=== PATIENT | female | born 1965 | race Caucasian/White ===

== ENCOUNTER 2017-11-16 14:27 | Outpatient (CLI) | payer BC | END 2017-11-16 14:28 | disposition home or self-care (01) | LOC: BICMAMMO 14:27 | PROVIDERS: ATTEND Internal Medicine | DX: Z12.31 Encounter for screening mammogram for malignant neoplasm of breast (principal); N63.20 Unspecified lump in the left breast, unspecified quadrant; Z80.3 Family history of malignant neoplasm of breast | CPT/HCPCS: 77063; 77067 ==

== ENCOUNTER 2017-11-17 13:14 | Outpatient (CLI) | payer BC | END 2017-11-17 13:15 | disposition home or self-care (01) | LOC: BICMAMMO 13:14 | PROVIDERS: ATTEND Internal Medicine | DX: N63.20 Unspecified lump in the left breast, unspecified quadrant (principal); N60.02 Solitary cyst of left breast | CPT/HCPCS: G0279 ==

== ENCOUNTER 2018-05-17 15:00 | Outpatient (CLI) | payer BC ==
[2018-05-17 15:37] LABS: Hemoglobin 13.8 g/dL (12.0-16.0); Mean Corpuscular HGB CONC 34.8 g/dL (32.0-36.0); Mean Corpuscular Hemoglobin 31.5 pg (27.0-31.0); Mean Corpuscular Volume 90.5 fL (78.0-98.0); Mean Platelet Volume 6.7 fL (7.4-10.4); Platelet Count 365 thou/uL (130-400); RBC Distribution Width 11.1 % (11.5-14.5); Red Blood Cell (RBC) Count 4.39 mill/uL (4.20-5.40)
== END 2018-05-17 15:01 | disposition home or self-care (01) ==
LOC: LABBT 15:00
PROVIDERS: ATTEND Student in an Organized Health Care Education/Training Program
DX: Z01.812 Encounter for preprocedural laboratory examination (principal); N95.0 Postmenopausal bleeding
CPT/HCPCS: 85027; 86850; 86900; 86901

== ENCOUNTER 2018-05-20 10:19 | Day surgery (SDC) | payer BC ==
[2018-05-11 09:19] VITALS: BMI 26.6
[2018-05-20] MEDS ORDERED: Midazolam HCl 2 mg/2 ml Vial ONE (11:11)
[2018-05-20] MEDS ORDERED: Fentanyl 100 MCG/2 ML VIAL ONE (11:16)
--- NOTE | 2018-05-21 12:26 | OP ---
DATE OF OPERATION: 05/20/2018 PREOPERATIVE DIAGNOSIS: Postmenopausal vaginal bleeding. POSTOPERATIVE DIAGNOSIS: Postmenopausal vaginal bleeding. PROCEDURE: Hysteroscopy, dilation and curettage. ANESTHESIA: General LMA. ATTENDING SURGEON: Keli Schwartz M.D. ESTIMATED BLOOD LOSS: 10 mL. IVF: 400 mL crystalloid. URINE OUTPUT: 150 mL of clear urine at the beginning. DRAINS: None. COMPLICATIONS: None. PATHOLOGY: Endometrial curettings. FINDINGS: A small mobile uterus, normal appearing cervix. Endocervical canal was normal appearing. The endometrium and uterine cavity were distorted secondary to the patient's previous ablation. The re was no visible endometrium. The tubal ostia were not visualized. The uterus did sound to 7 cm an d felt to be visualized and what remained that was not scarred down. There were no visible abnormal appearing masses or lesions on the endometrium and there was scant tissue that returned on curetting of the endometrium and endocervix. This was sent for final pathology. Fluid deficit for the case wa s 200 mL and normal saline was used as distention media. OPERATIVE TECHNIQUE: The patient was taken to the operating room where general anesthesia was obtain ed of difficulty. The patient was prepped and draped in a sterile fashion in the dorsal lithotomy po sition. A red rubber catheter was performed during the vaginal prep. A weighted speculum was placed in the vagina. The anterior lip of the cervix was grasped with a single tooth tenaculum. There was difficulty entering into the cervix with the smallest Jesus dilator. A hemostat was taken to the cer vix up to the internal os and spread as a means to break up adhesions at the level of the internal ce rvical os. The dilator was able to be passed at that time and the cervix was progressively dilated w ith Jesus dilators. There was some difficulty in locating the canal as the canal was irregular second pato to scarring from the patient's prior ablation. The uterus then sounded to 7 cm and the 5 mm hyst eroscope was assembled and inserted into the uterus and the fundus where the above findings were note d and a thorough inspection was performed of the uterine cavity or what remained of it and it did not feel like this was a false track or that this was in fact the patient's uterus and the appearance co nsistent with her prior ablation. Photodocumentation was performed and a sharp curettage was taken t o the uterus and all the murguia noted a gritty texture. There was a small amount of tissue that retur chastity and this was sent for final pathology. Hysteroscope was then reintroduced to again examine the u terus to ensure the curet was passed into the cavity and there was some blood in the cavity consisten t with curetting for adequate tissue sample. However, the patient is aware that following an ablatio n the endometrium is scarred and sampling of the uterine cavity is not necessarily reliable; however, this was felt to be an appropriate evaluation secondary to unable to obtain an office biopsy. The h ysteroscope was removed. The tenaculum was removed off the cervix. The cervix was noted to be hemos tatic. All instruments were removed out of the vagina. The patient tolerated the procedure well. S ponge and needle counts were correct x2. The patient was taken to recovery in stable condition. The patient did not receive antibiotics prior to the procedure. Fluid deficit for the case was 200 mL.
== END 2018-05-20 14:30 | disposition home or self-care (01) ==
LOC: SDC 10:19
PROVIDERS: ATTEND Student in an Organized Health Care Education/Training Program
PROC: 0UDB7ZX Extraction of Endometrium, Via Natural or Artificial Opening, Diagnostic (ICD-10-PCS; principal; 2018-05-20)
DX: N95.0 Postmenopausal bleeding (principal); Z79.899 Other long term (current) drug therapy; Z98.890 Other specified postprocedural states
CPT/HCPCS: 88305; J2250; J3010